=== PATIENT | male | born 1975 | race Hispanic/Latino ===

== ENCOUNTER 2018-08-29 17:20 | Emergency (ER) | payer SELFPAY ==
[~2018-08-29] VITALS: Ht 165.1 cm; Wt 82.6 kg
[2018-08-29] MEDS ORDERED: KEFLEX500 M1 PO (18:51)
[2018-08-29 18:59] VITALS: BP 148/98
== END 2018-08-29 19:14 | disposition home or self-care (01) | DRG 605 ==
LOC: ED 17:20
PROC: 0HQFXZZ Repair Right Hand Skin, External Approach (ICD-10-PCS; principal; 2018-08-29)
DX: S61.214A Laceration without foreign body of right ring finger without damage to nail, initial encounter (principal); W26.0XXA Contact with knife, initial encounter; Y93.G3 Activity, cooking and baking; Y92.000 Kitchen of unspecified non-institutional (private) residence as the place of occurrence of the external cause